=== PATIENT | male | born 1995 | race African-American/Black ===

== ENCOUNTER 2016-12-29 13:53 | Emergency (ER) | payer OTHER ==
[~2016-12-29] VITALS: Ht 177.8 cm; Wt 81.6 kg
[~2016-12-29 13:53] MED LIST: ZOFRAN4 M1 SL
[2016-12-29 14:32] LABS: ABSOLUTE BASOPHIL COUNT 0 /CUMM (0.0-0.2); ABSOLUTE EOSINOPHIL COUNT 0 /CUMM (0.0-0.7); ABSOLUTE GRANULOCYTE CT 8.5 /CUMM (1.4-6.5); ABSOLUTE LYMPH COUNT 0.4 /CUMM (1.2-3.4); ABSOLUTE MONOCYTE COUNT 0.6 /CUMM (0.10-0.60); BASOPHIL % 0.1 % (0.0-2.0); EOSINOPHIL % 0.3 % (0-5); GRANULOCYTE % 88.7 % (42.2-75.2); HEMATOCRIT 48.2 % (42-52); MEAN CORPUSCULAR HGB 30.1 PG (27.0-31.0); MEAN CORPUSCULAR HGB CONC 34.2 G/DL (33.0-37.0); MEAN CORPUSCULAR VOLUME 88.1 FL (80.0-94.0); MEAN PLATELET VOLUME 9.7 FL (7.4-10.4); PLATELET COUNT 252 /CUMM (130-400); RBC DISTRIBUTION WIDTH 13.3 % (11.5-14.5); RED BLOOD CELL CT 5.48 /CUMM (4.70-6.10); WHITE BLOOD CELL COUNT 9.6 /CUMM (4.8-10.8)
--- NOTE | 2016-12-29 16:00 | ED GENERAL ADULT ---
History of Present Illness General Chief Complaint: Abdominal Pain/Flank Pain Stated Complaint: HEADACHE, ABD PAIN, NVD Source: patient Exam Limitations: no limitations Vital Signs & Intake/Output Vital Signs & Intake/Output Vital Signs Date Time Temp Pulse Resp B/P Pulse O2 O2 Flow FiO2 Ox Delivery Rate 12/29 1648 96.8 76 20 119/56 99 Room Air 12/29 1622 Room Air Room Air 12/29 1401 97.7 80 20 118/62 98 Room Air Allergies Coded Allergies: Penicillins (Mild, HIVES 12/29/16) Reconcile Medications Metoclopramide HCl (Reglan) 10 MG TABLET 1 TAB PO 4 TIMES/DAY PRN nausea/ headache Triage Note: PT PRESENTS TO ER C/O OF ABDOMINAL PAIN, N/V, AND A HEADACHE. PT STATES PAIN STARTED LAST NIGHT AND IS ALL OVER STOMACH. Triage Nurses Notes Reviewed? yes HPI: Patient is a 21 year old male presents complaining of headache, nausea, vomiting. Symptoms onset yesterday while at work, patient works for a moving company. Bitemporal throbbing pain worsens with light. Mid abdominal pain worsens with vomiting. 5-6 episodes of vomiting since onset. Subjective fevers last night. History of migraines, no headaches for several years. Denies neck stiffness, numbness, blurred vision. (WINTER MERIDA) Past History Travel History Traveled to [place] past 21 day No Medical History Any Pertinent Medical History? see below for history Neurological: migraine Respiratory: asthma Surgical History Surgical History: N Psychosocial History What is your primary language Malaysian Tobacco Use: Current Daily Use Daily Tobacco Use Amount/Type: =< 4 Cigarettes daily ETOH Use: denies use Illicit Drug Use: denies illicit drug use Family History Hx Contributory? No (WINTER MERIDA) Review of Systems Review of Systems Constitutional: Denies: chills, fever. EENTM: Reports: no symptoms. Respiratory: Denies: cough, short of breath. Cardiovascular: Denies: chest pain. GI: Reports: abdominal pain, nausea, vomiting. Genitourinary: Reports: no symptoms. Musculoskeletal: Denies: back pain, neck pain. Skin: Reports: no symptoms. Neurological/Psychological: Reports: headache. Denies: confusion, numbness. Hematologic/Endocrine: Reports: no symptoms. Immunologic/Allergic: Reports: no symptoms. (TRUDY MERIDA Physical Exam Physical Exam General Appearance: well developed/nourished, alert, awake Head: atraumatic, normal appearance Eyes: Bilateral: normal appearance, PERRL, EOMI. Ears, Nose, Throat: normal pharynx, normal ENT inspection, hearing grossly normal Neck: normal inspection, supple, full range of motion Respiratory: normal breath sounds, chest non-tender, no respiratory distress, lungs clear Cardiovascular: regular rate/rhythm Gastrointestinal: normal bowel sounds, soft, mild mid abdominal tenderness. Negative Mathew sign, negative McBurney's point tenderness Back: normal inspection, normal range of motion Extremities: normal inspection, normal capillary refill, normal range of motion, no edema Neurologic/Psych: no motor/sensory deficits, awake, alert, oriented x 3, normal gait, normal mood/affect, motor teacher II-XII nml as tested Skin: intact, normal color, warm/dry Lymphatic: no anterior cervical arabella Core Measures ACS in differential dx? No CVA/TIA Diagnosis: No Severe Sepsis Present: No Septic Shock Present: No (WINTER MERIDA) Progress Differential Diagnoses I considered the following diagnoses in my evaluation of the patient: Migraine, viral syndrome, intracranial bleed, intra-abdominal infection Plan of Care: Orders Procedure Date/time Status COMPREHENSIVE METABOLIC PANEL 12/29 1402 Complete CBC WITHOUT DIFFERENTIAL 12/29 1402 Complete Laboratory Tests 12/29/16 1304: Anion Gap 15, Estimated GFR > 60, BUN/Creatinine Ratio 23.8, Glucose 117 H, Calcium 10.3 H, Total Bilirubin 1.3, AST 20, ALT 26, Alkaline Phosphatase 116, Total Protein 7.7, Albumin 4.8, Globulin 2.9, Albumin/Globulin Ratio 1.7, CBC w Diff MAN DIFF ORDERED, RBC 5.48, MCV 88.1, MCH 30.1, RDW 13.3, MPV 9.7, Gran % 88.7 H, Lymphocytes % 4.3 L, Monocytes % 6.6, Eosinophils % 0.3, Basophils % 0.1, Absolute Granulocytes 8.5 H, Absolute Lymphocytes 0.4 L, Absolute Monocytes 0.6, Absolute Eosinophils 0, Absolute Basophils 0, Platelet Estimate VERIFIED BY SMEAR, Normocytic RBCs VERIFIED, Normochromic RBCs VERIFIED, PUBS MCHC 34.2 Patient reports significant improvement after Toradol, Reglan, IV fluids. Results of labs discussed with patient. No acute neurologic abnormalities. No signs of meningitis. Neuro imaging and lumbar puncture deferred secondary to clinical exam. No peritoneal signs. Abdominal imaging deferred. (WINTER MERIDA) Initial ED EKG: none (WINTER MERIDA) Departure Departure Time of Disposition: 1640 Disposition: HOME OR SELF CARE Condition: Stable Clinical Impression Primary Impression: Headache Secondary Impressions: Vomiting Referrals: WALESKA PENA,TRACI Rivera (PCP/Family) Additional Instructions: Drink plenty of fluids and rest. Follow up with your doctor if no improvement within 2-3 days. Return to the ER if unable to stay hydrated, fevers, or worsening of symptoms. Departure Forms: Customer Survey General Discharge Information Prescriptions: Current Visit Scripts Metoclopramide HCl (Reglan) 1 TAB PO 4 TIMES/DAY PRN nausea/headache #12 TAB (WINTER MERIDA) PA/ORGANIC PREPARATION ANALYST Co-Sign Statement Statement: ED Attending supervision documentation- [] I saw and evaluated the patient. I have also reviewed all the pertinent lab results and diagnostic results. I agree with the findings and the plan of care as documented in the PA's/ORGANIC PREPARATION ANALYST's documentation. [X] I have reviewed the ED Record and agree with the PA's/ORGANIC PREPARATION ANALYST's documentation. [] Additions or exceptions (if any) to the PAs/ORGANIC PREPARATION ANALYST's note and plan are summarized below: [] (RADHA KRUSE DO) Critical Care Note Critical Care Note Critical Care Time: non-applicable (WINTER MERIDA)
[2016-12-29] MEDS ORDERED: REGLAN10 M1 PO (16:42)
[2016-12-29 16:48] VITALS: BP 119/56
== END 2016-12-29 16:49 ==
LOC: ERH 13:53
PROVIDERS: Emergency Medicine
DX: R51 Headache (principal); R11.2 Nausea with vomiting, unspecified
CPT/HCPCS: 96374; 96375; J1885; J2765